=== PATIENT | male | born 1975 | race Caucasian/White ===

== ENCOUNTER → 2017-03-30 08:28 | Outpatient (CLI) | payer BC, SELFPAY ==
--- NOTE | 2017-03-30 08:44 | CA_ITS ---
PROCEDURE: 2-D M-mode and color Doppler study INDICATIONS FOR THE TEST: Chest pain COPD Heart Murmur Tobacco Smoking Palpitations Fatigue Syncope Edema Hypertension Diabetes Mellitus Rheumatic Fever SOB WAY[place] Obesity Hyperlipidemia Family History HD Additional History PRE-OP,S/P PFO CLOSURE 03 PATIENT INFORMATION HEIGHT: 70 WEIGHT:205 GENDER: Male B/P:135/82 2-D/M-MODE INTERPRETATION: 2-D MEASUREMENTS OBSERVED VALUES IN CMS Right Ventricular Dimension (RVDd) 1.9 Interventricular Septum (Thickness)(IVsd) .7 Left Ventricular Internal Dimensions(LVIDd) 5.4 Left Ventricular Posterior Wall (Thickness)(LVPWd) .9 Aortic Root 3.3 Aortic Cusp Separation 2.4 Left Atrial Dimensions (LAD) 3.4 2D 1. Left atrium is normal size, left ventricle is normal size, there is no concentric left ventricular hypertrophy, visually estimated ejection fraction 55% with no obvious regional wall motion abnormality, there is abnormal septal motion 2. The right atrium and right ventricle are mildly enlarged with normal contractility. 3. The aortic valve is minimally thickened and fibrosed. 4. The mitral and tricuspid valve leaflets are minimally thickened. 5. The pulmonic valve is poorly visualized. 6. The intra-atrial septum appears to be intact 7. No significant pericardial effusion noted. DOPPLER INTERROGATION: Doppler interrogation of the aortic, mitral and tricuspid valvular presence of mild mitral and tricuspid regurgitation, tricuspid and jet velocity is insufficient for calculation of the right ventricular systolic pressure, there is no obvious flow across the intra-atrial septum. CONCLUSION: 1. Normal left ventricular size, preserved left ventricular systolic function, visually estimated ejection fraction 55% with no obvious regional wall motion abnormality, there is abnormal septal motion. 2. Mildly enlarged right atrium and right ventricle, contractility of the right ventricle is normal. 3. Mild mitral and tricuspid regurgitation 4. No obvious flow across the intra-atrial septum.
[2017-03-30 08:56] LABS: Activated Partial Thrombo Time 25.1 seconds (23.6-34.0)
--- NOTE | 2017-03-30 09:17 | XR_ITS ---
XR chest 2V HISTORY: Heart disease, prior heart surgery, tobacco abuse ITS.REASON: HX TOB USE ORDERING PHYSICIAN: Crow Downs MD PATIENT AGE: 41 years COMPARISON: None available FINDINGS: Prior median sternotomy. There is fracture of the 2 superior most and inferior most median sternotomy wires.. Normal heart size. No evidence of CHF. The lungs are clear without infiltrates, suspicious nodules, or pleural effusions. No acute bony abnormalities. IMPRESSION: Prior median sternotomy, no acute finding
[2017-03-30 10:21] LABS: Alanine Aminotransferase 40 U/L (12-78); Albumin/Globulin Ratio 1.3 (1.1-1.8); Alkaline Phosphatase 63 U/L (46-116); Anion Gap 8.6 mEq/L (5-15); Aspartate Amino Transferase 20 U/L (15-37); Blood Urea Nitrogen 14 mg/dL (7-18); Calcium 9.3 mg/dL (8.5-10.1); Carbon Dioxide 31 mmol/L (21.0-32.0); Chloride 108 mmol/L (98-107); Creatinine,Serum 0.79 mg/dL (0.70-1.30); Estimated Glomerular Filt Rate 107 ml/min (>60); GFR (African American) 130 ML/MIN (>60); Globulin 3.1 gm/dl (1.3-3.2); Glucose 100 mg/dL (74-106); Potassium 4.6 mmoL/L (3.5-5.1); Sodium 143 mmol/L (136-145); Total Protein,Serum 7.1 gm/dL (6.4-8.2)
== END ==
PROVIDERS: PCP Internal Medicine Adolescent Medicine; Visit Provider Internal Medicine Adolescent Medicine
DX: R17 Unspecified jaundice (principal); R79.1 Abnormal coagulation profile; Z98.890 Other specified postprocedural states; Z01.818 Encounter for other preprocedural examination
CPT/HCPCS: 36415; 71046; 80053; 85730; 93306

== ENCOUNTER 2017-06-30 09:30 | Outpatient (RCR) | payer OTHER, BC, SELFPAY | END 2017-06-30 15:51 | disposition home or self-care (01) | LOC: PT 09:30 | PROVIDERS: PCP Internal Medicine Adolescent Medicine; Visit Provider Orthopaedic Surgery | DX: S83.241A Other tear of medial meniscus, current injury, right knee, initial encounter (principal) | CPT/HCPCS: 97035; 97110; 97164 ==